=== PATIENT | female | born 1960 | race Caucasian/White ===

== ENCOUNTER → 2017-03-14 | Outpatient (CLI) | payer MEDICARE ==
[~2017-03-14] MED LIST: /GLYB5TA OR; ACTO15TA OR; ASPI81TA4 PO; COMPOUND CREAM TOP; FLECTOR1.3 TOP; GLIP5TAB2 OR; GLYB5TAB5 PO; METO50TA2 PO; MOTR200T4 PO; OXYC-208 PO; PENNSAID TOP; PREG100CA PO; PREV15CA OR; SIMV20TA2 OR; TIZA4TAB OR; TIZA4TAB3 PO; [UNRECOGNIZED DRUG - OTHER] TOP; hyzaar OR; januvia OR
--- NOTE | 2017-03-14 14:09 | REP ---
THYROID ULTRASOUND: Real-time sonographic evaluation of the thyroid is performed. The right lobe measures 4.7 x 2.2 x 2.8 cm. The left lobe measures 4.5 x 1.3 x 1.5 cm. Echotexture is diffusely heterogeneous with multiple cystic and solid nodules throughout. The largest three on the right are measured, with a solid nodule in the upper pole `.4 x 2.0 x 1.3 cm. Complex cystic nodule in the right mid aspect measures 1.2 x 1.5 x 1.4 cm. Complex cystic nodule in the right lower pole measures 1.7 x 2.7 x 1.6 cm. Cystic nodule in the upper pole on the left measures 6 x 4 x 3 mm. A solid appearing nodule in the mid left lobe measures 7 x 6 x 6 mm. Compared to the prior study of 01/02/2016, the previously noted complex septated nodule in the right upper pole is not seen, but in its place are the described heterogeneous solid nodule in the right upper pole and complex cystic nodule in the right mid aspect. Signed by Robert Leonard MD 03/17/2017 09:52 A
== END ==
LOC: M RAD 12:59
PROVIDERS: ATTEND Internal Medicine Endocrinology, Diabetes & Metabolism
DX: E04.1 Nontoxic single thyroid nodule (principal); K74.60 Unspecified cirrhosis of liver; E11.65 Type 2 diabetes mellitus with hyperglycemia; E78.5 Hyperlipidemia, unspecified; E16.2 Hypoglycemia, unspecified; Z79.4 Long term (current) use of insulin; G62.9 Polyneuropathy, unspecified

== ENCOUNTER → 2018-04-13 | Outpatient (CLI) | payer MEDICARE | LOC: M RAD 14:41 | DX: K74.60 Unspecified cirrhosis of liver (principal); E11.65 Type 2 diabetes mellitus with hyperglycemia; E78.5 Hyperlipidemia, unspecified; E11.649 Type 2 diabetes mellitus with hypoglycemia without coma; Z79.4 Long term (current) use of insulin; R80.9 Proteinuria, unspecified; E04.2 Nontoxic multinodular goiter; E11.42 Type 2 diabetes mellitus with diabetic polyneuropathy; R94.6 Abnormal results of thyroid function studies; E55.9 Vitamin D deficiency, unspecified | CPT/HCPCS: 76536 ==

== ENCOUNTER → 2019-04-27 | Outpatient (CLI) | payer MEDICARE ==
[~2019-04-27] MED LIST changes: -/GLYB5TA OR; +GLYB1TAB29 OR
--- NOTE | 2019-04-27 15:20 | REP ---
Clinical: Cirrhosis. Comparison: 09/04/2015. Technique: Real time scale ultrasound examination using curved array transducer. Findings: The liver is heterogeneous in echotexture with a micronodular contour consistent with cirrhosis. No focal hepatic lesion identified. The pancreas is incompletely evaluated due to interposed bowel gas. The gallbladder demonstrates multiple mobile stones without wall thickening or pericholecystic fluid. No biliary ductal dilatation is appreciated and the common bile duct measures 5.7 mm diameter. The right kidney measures 10.9 x 4.9 x 3.7 cm without hydronephrosis. No ascites. Impression: 1. Cirrhotic changes to the liver without focal hepatic lesion identified. 2. Cholelithiasis. Electronically Signed by Luis Ornelas MD 04/27/2019 10:25 A
== END ==
LOC: M RAD 09:13
PROVIDERS: ATTEND Internal Medicine Gastroenterology
DX: K74.69 Other cirrhosis of liver (principal)

== ENCOUNTER → 2020-01-06 | Outpatient (CLI) | payer MEDICARE, MEDICAID ==
[~2020-01-06] MED LIST changes: +ISOVUE-370 76% 100ML VIAL As Ordered ONE
--- NOTE | 2020-02-16 10:05 | REP ---
CT OF THE CHEST WITH CONTRAST: COMPARISON: None available. HISTORY: Enlarged lymph node, tobacco use, cirrhosis, diabetes. CONTRAST DOSE: 75 ml of intravenous Isovue 370. FINDINGS: Digital preliminary career based intervention coordinator radiograph is unremarkable. There is good opacification of the pulmonary arterial tree. No filling defect or vessel cutoff is seen to suggest pulmonary embolism. There is no evidence of aortic aneurysm or dissection. The ascending aortic AP dimension is 3.5 cm at the level of the right main pulmonary artery. The left coronary artery shows moderate calcification. No adrenal lesion is seen. There is an accessory splenule in the left upper quadrant. No mediastinal mass or adenopathy is seen. No pleural or pericardial effusion is noted. The lung moreno are free of infiltrate. No mass or significant pulmonary nodule is seen. In the upper abdomen, there is evidence of opaque gallstones in the dependent portion of the gallbladder. No biliary ductal dilation is seen. The liver contour is somewhat micronodular and there are numerous foci of hypervascular contrast enhancement scattered in the liver which may reflect regenerating nodules. No focal splenic abnormality is seen. IMPRESSION: 1. No active cardiopulmonary disease. 2. Micronodular liver contour with numerous small foci of hypervascularity in the liver parenchyma, question regenerating nodules versus other lesion. 3. Cholelithiasis. MTDD
== END ==
LOC: M RAD 08:30
PROVIDERS: ATTEND Nurse Practitioner Family
DX: K74.60 Unspecified cirrhosis of liver (principal); R59.9 Enlarged lymph nodes, unspecified; E11.65 Type 2 diabetes mellitus with hyperglycemia; F17.290 Nicotine dependence, other tobacco product, uncomplicated; K80.20 Calculus of gallbladder without cholecystitis without obstruction
CPT/HCPCS: 71260; Q9967

== ENCOUNTER → 2020-04-27 | Outpatient (REF) | payer MEDICARE, MEDICAID ==
[~2020-04-27] MED LIST changes: -ISOVUE-370 76% 100ML VIAL As Ordered ONE
[2020-04-27 15:11] LABS: BASO % 0.5 % (0.0-1.0); EOS # 0.1 10^3/uL (0.0-0.5); EOS % 1.6 % (0.0-3.0); LYMPH # 1.7 10^3/uL (1.5-5.0); LYMPH % 26.8 % (24.0-44.0); MEAN CORPUSCULAR HEMOGLOBIN 29.8 pg (27.0-33.0); MEAN CORPUSCULAR HGB CONC 31.9 g/dl (32.0-36.5); MEAN CORPUSCULAR VOLUME 93.3 fl (80.0-96.0); MONO # 0.5 10^3/uL (0.0-0.8); MONO % 7.3 % (0.0-5.0); NEUTROPHILS # 3.9 10^3/uL (1.5-8.5); NEUTROPHILS % 63.5 % (36.0-66.0); PLATELET COUNT, AUTOMATED 127 10^3/uL (150-450); RED BLOOD COUNT 5.04 10^6/uL (4.00-5.40); WHITE BLOOD COUNT 6.2 10^3/uL (4.0-10.0)
[2020-04-27 15:56] LABS: ERYTHROCYTE SEDIMENTATION RATE 24 mm/hr (0-30)
== END ==
LOC: M SFHCPLAZ 09:58
PROVIDERS: ATTEND Internal Medicine Infectious Disease
DX: R42 Dizziness and giddiness (principal); H54.7 Unspecified visual loss
CPT/HCPCS: 36415; 85025; 85652; 86140; 86618; G0463

== ENCOUNTER → 2020-12-07 | Outpatient (CLI) | payer MEDICAID, MEDICARE ==
--- NOTE | 2020-12-07 08:44 | REP ---
INDICATION: CIRRHOSIS. COMPARISON: None. TECHNIQUE: Complete abdominal sonography. FINDINGS: Scanning through the right upper quadrant of the abdomen demonstrates somewhat coarse echotexture in the liver. Liver is not enlarged and no focal liver lesion is seen. Limited views of pancreas show no abnormality. Normal sized and walled gallbladder is seen with shadowing calculi in its dependent portion consistent with coli lithiasis. The common bile duct is normal measuring 0.6 cm in greatest diameter. Normal caliber aorta is seen. No right renal abnormality is seen. The right kidney measures 10.2 x 4.3 x 3.6 cm. Scanning in the left upper quadrant demonstrates a normal size homogeneous spleen, 8.4 cm in greatest diameter. Left kidney is unremarkable as well measuring 11.3 x 5.5 x 4.3 cm. There is no evidence of ascites. IMPRESSION: Cholelithiasis. Somewhat coarse liver texture. Otherwise negative complete abdominal sonography. <Electronically signed by Jacob Corona > 12/07/20 [id number]
== END ==
LOC: M RAD 07:55
PROVIDERS: ATTEND Specialist
DX: K74.60 Unspecified cirrhosis of liver (principal)

== ENCOUNTER → 2021-03-23 | Outpatient (CLI) | payer MEDICARE ==
--- NOTE | 2021-03-23 14:31 | REP ---
INDICATION: NICOTINE DEPENDENCE. COMPARISON: None. TECHNIQUE: Imaging protocol: Computed tomography of the chest without IV contrast, lung windows only. Radiation optimization: All CT scans at this facility use at least one of these dose optimization techniques: automated exposure control; mA and/or kV adjustment per patient size (includes targeted exams where dose is matched to clinical indication); or iterative reconstruction. FINDINGS: Mediastinum: There are no gross mediastinal abnormalities. Heart/thoracic aorta: The heart size is normal. There is calcific vascular disease of the thoracic aorta and coronary arteries. Thoracic esophagus: No evidence of hiatal hernia. Chest wall and axilla: The visualized breasts in soft tissues of the chest wall are grossly unremarkable. There is no axillary lymphadenopathy evident. There are no significant bony abnormalities of the chest. Lung parenchyma: There is linear scarring or atelectasis in the lingula and the middle lobe the right lung. There are 2 pleural based areas of airspace consolidation in the right lung, in the middle lobe and in the anterior segment of the lower lobe. The lungs are otherwise clear. There are no pleural effusions. IMPRESSION: 1. Scarring or atelectasis in the lingula and middle lobe the right lung. 2. Two small areas of pleural based airspace consolidation in the right lung. 3. Other findings as noted, not significantly changed. RECOMMENDATION: Six-month follow-up low-dose chest CT. <Electronically signed by Vini Shearer > 03/23/21 [id number]
== END ==
LOC: M RAD 13:42
PROVIDERS: ATTEND Family Medicine
DX: Z87.891 Personal history of nicotine dependence (principal)

== ENCOUNTER → 2021-10-05 | Outpatient (CLI) | payer MEDICARE | LOC: M PLAIMG 14:09 | PROVIDERS: ATTEND Family Medicine | DX: D38.1 Neoplasm of uncertain behavior of trachea, bronchus and lung (principal); Q44.7 Other congenital malformations of liver; K76.0 Fatty (change of) liver, not elsewhere classified; I77.819 Aortic ectasia, unspecified site; I25.10 Atherosclerotic heart disease of native coronary artery without angina pectoris ==

== ENCOUNTER → 2021-11-12 | Outpatient (CLI) | payer MEDICARE | LOC: M RAD 09:12 | PROVIDERS: ATTEND Internal Medicine Gastroenterology | DX: K74.60 Unspecified cirrhosis of liver (principal) ==

== ENCOUNTER → 2022-05-07 | Outpatient (CLI) | payer MEDICAID, MEDICARE | LOC: M RAD 09:02 | PROVIDERS: ATTEND Internal Medicine Gastroenterology | DX: K74.60 Unspecified cirrhosis of liver (principal) ==

== ENCOUNTER → 2022-11-08 | Outpatient (CLI) | payer MEDICAID, MEDICARE | LOC: M RAD 08:28 | PROVIDERS: ATTEND Internal Medicine Gastroenterology | DX: K74.60 Unspecified cirrhosis of liver (principal) ==